=== PATIENT | male | born 2000 | race Caucasian/White ===

== ENCOUNTER 2020-11-29 10:58 | Emergency (ER) | payer OTHER ==
[~2020-11-29] VITALS: Ht 180.3 cm; Wt 68.0 kg
[2020-11-29] MEDS ORDERED: NAPROSYN500 MG PO (12:50)
[2020-11-29] MEDS ORDERED: KEFLEX500 M1 PO (12:50)
[2020-11-29] MEDS ORDERED: NORCO5 PO (12:50)
[2020-11-29 12:59] VITALS: BP 114/73
== END 2020-11-29 13:00 | disposition home or self-care (01) ==
LOC: M.ERS 10:58
DX: S61.230A Puncture wound without foreign body of right index finger without damage to nail, initial encounter (principal); F17.210 Nicotine dependence, cigarettes, uncomplicated; W34.09XA Accidental discharge from other specified firearms, initial encounter; Y93.89 Activity, other specified; Y92.69 Other specified industrial and construction area as the place of occurrence of the external cause; Y99.9 Unspecified external cause status